=== PATIENT | female | born 1955 | race African-American/Black ===

== ENCOUNTER 2018-06-20 18:59 | Emergency (ER) | payer OTHER ==
[~2018-06-20] VITALS: Ht 165.1 cm; Wt 114.0 kg
[2018-06-21] MEDS ORDERED: KETOROLAC 60MG/2ML VIAL IM ONE (03:00)
[2018-06-21 03:05] VITALS: BP 119/86
== END 2018-06-21 03:33 | disposition home or self-care (01) ==
LOC: ER 18:59
DX: M25.472 Effusion, left ankle (principal); M25.572 Pain in left ankle and joints of left foot; Z88.5 Allergy status to narcotic agent
CPT/HCPCS: 73610; 96372; 99283; J1885

== ENCOUNTER 2018-08-02 11:18 | Emergency (ER) | payer OTHER ==
[~2018-08-02] VITALS: Ht 165.1 cm; Wt 96.0 kg
[2018-08-02] MEDS ORDERED: IBUPROFEN 800MG TABLET PO ONE (17:15)
[2018-08-02 18:43] VITALS: BP 124/69
== END 2018-08-02 18:43 | disposition home or self-care (01) ==
LOC: ER 12:28
DX: M79.671 Pain in right foot (principal); Z88.5 Allergy status to narcotic agent
CPT/HCPCS: 73630; 99283

== ENCOUNTER 2023-05-30 03:18 | Emergency (ER) | payer BC, OTHER ==
[~2023-05-30] VITALS: Ht 167.6 cm; Wt 100.0 kg
[2023-05-30 03:25] VITALS: O2SAT 99
[2023-05-30] MEDS ORDERED: SILVER SULFADIAZINE 1% CREAM 25GM TOP ONE (03:30)
[2023-05-30] MEDS ORDERED: LACTATED RINGERS 1,000 ML IV ONE (03:30)
[2023-05-30 04:55] LABS: BASOPHILS % 0.4 % (0.0-2.0); EOSINOPHILS % 0.3 % (0.0-5.0); HEMATOCRIT. 39.5 % (36.0-48.0); HEMOGLOBIN. 13.7 g/dL (12.0-16.0); LYMPHOCYTES % 21.9 % (20.0-50.0); MEAN CORPUSCULAR HEMOGLOBIN 29.5 pg (28.0-32.0); MEAN CORPUSCULAR HGB CONC 34.6 g/dL (31.0-37.0); MEAN PLATELET VOLUME 8.2 fl (7.4-10.4); MONOCYTES % 4.9 % (2.0-8.0); NEUTROPHILS % 72.5 % (40.0-76.0); PLATELET 315 x1000/uL (130-400); RED BLOOD CELL COUNT 4.64 mill/uL (4.2-5.4); RED CELL DISTRIBUTION WIDTH 17.3 % (11.6-14.6); WHITE BLOOD COUNT 14.3 x1000/uL (4.5-11.0)
[2023-05-30 05:06] LABS: ALANINE AMINOTRANSFERASE 16 IU/L (10-49); ALBUMIN 4.6 g/dL (3.2-4.8); ASPARTATE AMINOTRANSFERASE 23 IU/L (<34); BILIRUBIN TOTAL 0.3 mg/dL (0.1-1.0); CALCIUM 9.9 mg/dL (8.7-10.4); CARBON DIOXIDE 29 mEq/L (21-32); CHLORIDE 103 mEq/L (98-107); CREATININE 0.9 mg/dL (0.6-1.0); GLUCOSE 148 mg/dL (70-105); POTASSIUM 4.1 mEq/L (3.5-5.1); PROTEIN TOTAL 7.1 g/dL (6.0-8.3); SODIUM 140 mEq/L (136-145); UREA NITROGEN BLOOD 11 mg/dL (9-23)
[2023-05-30] MEDS ORDERED: AMLO10TA4 MT (05:40)
[2023-05-30] MEDS ORDERED: IBUP-2029 MT (05:40)
[2023-05-30] MEDS ORDERED: SILV20CR13 TP (05:40)
[2023-05-30] MEDS ORDERED: GAUZ1BAN31 MT (05:40)
[2023-05-30] MEDS ORDERED: METO-385 MT (05:40)
[2023-05-30] MEDS ORDERED: ATOR20TA65 MT (05:40)
[2023-05-30] MEDS ORDERED: TETANUS AND DIPHTHERIA TOX/PF 0.5ML SYR (ADULT) IM ONE (05:45)
[2023-05-30] MEDS ORDERED: TETANUS, DIPHTHERIA, PERTUSSIS VAC/PF 0.5ML (>10YR OLD) IM ONE (06:15)
[2023-05-30 06:46] VITALS: BP 131/74; PULSE 84; RESP 20; TEMP 98.3
== END 2023-05-30 06:52 | disposition home or self-care (01) ==
LOC: ER 03:18
DX: T22.251A Burn of second degree of right shoulder, initial encounter (principal); T20.27XA Burn of second degree of neck, initial encounter; X08.8XXA Exposure to other specified smoke, fire and flames, initial encounter; Y93.89 Activity, other specified; Y92.89 Other specified places as the place of occurrence of the external cause; Y99.8 Other external cause status
CPT/HCPCS: 99283; 96360; 80053; 85025; 36415; 90715; 16020; 90471; J7120; 90714; 96361